=== PATIENT | male | born 1975 | race Caucasian/White ===

== ENCOUNTER 2020-03-03 21:31 | Emergency (ER) | payer BC, SELFPAY ==
[2020-03-03 21:33] VITALS: BP 132/81; PULSE 51; RESP 18; TEMP 36.6; O2SAT 100
--- NOTE | 2020-03-03 23:36 | ED.MALEGU ---
HPI - Male Genitourinary General Chief complaint: Urogenital-Male Stated complaint: hematuria with clots Time Seen by Provider: 03/03/20 22:16 Source: patient Mode of arrival: ambulatory Limitations: no limitations History of Present Illness HPI Narrative: This patient is a 44 year old male who presents with c/o gross hematuria. HE states he had a bladder neck resection performed on 02/13/[address] Cerda at [facility]. He states starting on Monday he developed hematuria. Today he reports he has been urinating large clots. He states he felt like it was causing him difficulty in passing urine so he came to ER. He was seen by his urologist this morning and he states they talked to him about possibly placing catheter. He did not want to have catheter placed. He states when he urinated in ER he has no clots his urine is just dark. HE denies abdominal pain, back pain, fever, nausea or vomiting. Related Data Home Medications Medication Instructions Recorded Confirmed acetaminophen 03/03/20 duloxetine mg PO 03/03/20 finasteride mg 03/03/20 fluticasone propionate INTRANASAL 03/03/20 ibuprofen 03/03/20 levofloxacin 03/03/20 tamsulosin mg PO 03/03/20 valacyclovir 03/03/20 Allergies Allergy/AdvReac Type Severity Reaction Status Date / Time No Known Allergies Allergy Unknown Verified 03/03/20 21:50 Review of Systems Review of Systems: All systems reviewed & are unremarkable except as noted in HPI and below Constitutional: Constitutional: Denies chills, Denies fatigue and Denies fever(s) Gastrointestinal: Gastrointestinal: Denies abdominal pain, Denies belching and Denies melena Genitourinary: Genitourinary: Reports hematuria, Denies oliguria, Denies urinary frequency and Reports urinary hesitancy Musculoskeletal: Musculoskeletal: Denies back pain PMFSH Past Medical History Medical History (Updated 03/04/20 @ 08:19 by Caitlyn Carrington MD) Kidney stone Surgical History Surgical History (Updated 03/03/20 @ 23:38 by Caitlyn Carrington MD) History of bladder surgery Social History Social History (Updated 03/03/20 @ 23:38 by Caitlyn Carrington MD) Smoking status: Never smoker Gender identity (if verbalized by the patient): Male Exam Narrative: Exam Narrative: GENERAL: Well-appearing, well-nourished, and in no acute distress. HEAD: Normocephalic, atraumatic EYES: PERRLA and EOMI, conjunctiva clear without discharge RESPIRATORY: No respiratory distress, Airway patent, Respirations non-labored, Clear to auscultation without rales, rhonchi or wheeze HEART: Regular rate and rhythm. No murmur heard. Normal peripheral pulses. ABDOMEN: Soft, nontender, nondistended, normal active bowel sounds. No masses. No rebound or guarding, No organomegaly. EXTREMITIES: No edema, normal strength with full range of motion. SKIN: Warm, dry, normal color without rash NEURO: Alert and oriented x3. CN 2-12 grossly intact. No focal deficits. PSYCH: Normal mood and affect. : General: Yes no CVA tenderness Penis: Yes circumcised and No erythematous Meatus: no meatla discharge and No Blood at meatus present Scrotum: scrotum normal Course Reevaluation(s) Reevaluation #1: I Discussed with patient that I was calling urologist at [facility] to discussed further treatment and possible ibrahim catheter. Patient told nursing staff that he did not want to wait and he signed AMA Date: 03/03/20 Time: 23:45 Vital Signs Vital signs: Vital Signs Temperature 97.9 F 03/03/20 21:33 Pulse Rate 51 L 03/03/20 21:33 Respiratory Rate 18 03/03/20 21:33 Blood Pressure 132/81 03/03/20 21:33 Pulse Oximetry 100 03/03/20 21:33 Temperature 97.7 F 03/03/20 23:50 Pulse Rate 58 L 03/03/20 23:50 Respiratory Rate 18 03/03/20 23:50 Blood Pressure 130/93 H 03/03/20 23:50 Pulse Oximetry 99 03/03/20 23:50 MDM - Male Genitourinary Lab Data Labs: Urine Characteristics Cloudy Discharg
--- NOTE | 2020-03-03 23:40 | PC.NURSE ---
Pt requesting to leave at this time.
--- NOTE | 2020-03-03 23:45 | PC.NURSE ---
ERP Dr. Carrington notified of pt requesting to leave. DR. Carrington states Pt can sign out ama. AMA paper work signed by ERP Dr. Carrington at this time.
[2020-03-03 23:50] VITALS: BP 130/93; PULSE 58; RESP 18; TEMP 36.5; O2SAT 99
== END 2020-03-03 23:57 | disposition left against medical advice (07) ==
PROVIDERS: Emergency Provider General Practice; PCP Emergency Medicine
DX: R31.0 Gross hematuria (principal); Z87.442 Personal history of urinary calculi
CPT/HCPCS: 99281

== ENCOUNTER → 2021-04-19 10:48 | Outpatient (CLI) | payer BC, SELFPAY ==
--- NOTE | ~2021-04-19 | US_ITS ---
EXAMINATION: US soft tissue LE RT EXAM DATE: 04/19/2021 11:07 INDICATION: Pain in right knee. TECHNIQUE: Multiple grayscale and Doppler images of the right lower extremity popliteal fossa were ob tained (by a technologist who performed the scan) and subsequently reviewed. There is no prior study for comparison. FINDINGS: No right-sided Majano's cyst, popliteal fossa mass or other abnormality identified. IMPRESSION: 1. Unremarkable ultrasound exam. Reviewed, dictated and finalized at location B.
== END ==
PROVIDERS: PCP Emergency Medicine; Visit Provider Emergency Medicine
DX: M25.561 Pain in right knee (principal)
CPT/HCPCS: 76882

== ENCOUNTER 2021-06-18 16:53 | Emergency (ER) | payer BC, SELFPAY | END 2021-06-18 17:00 | disposition left against medical advice (07) | PROVIDERS: PCP Emergency Medicine | DX: Z53.21 Procedure and treatment not carried out due to patient leaving prior to being seen by health care provider (principal) | CPT/HCPCS: 99199 ==